=== PATIENT | female | born 1955 | race African-American/Black ===

== ENCOUNTER 2016-09-12 04:58 | Observation (INO) | payer SELFPAY ==
--- NOTE | 2016-09-12 05:16 | ER Document Report ---
ED Dizziness/Weakness - General Chief Complaint: Near Syncope Stated Complaint: WEAKNESS Mode of Arrival: Medic Information source: Patient Notes: Patient states that she was at work and developed palpitations off and on that started around 2:00. Patient states that around 4 AM the symptoms became persistent and she was feeling weak. Patient states that she broke out in a sweat that she was treated her symptoms by sitting in front of a fan took herself off. EMS reports that patient was in SVT with her heart rate in the 170s and patient was hypotensive. They did give patient a 300 mL bolus of IV fluids. Patient currently in a sinus rhythm with normalized blood pressure. Patient states that her only complaint had been feeling like her heart was racing and feeling generally weak. Patient denied any chest pain, abdominal pain, or back pain. Patient denies any symptoms like this in the past. Patient denies any recent travel. TRAVEL OUTSIDE OF THE [place] IN LAST 30 DAYS: No - HPI Patient complains to provider of: Weakness Onset: This morning Onset/Duration: Sudden Quality of pain: No pain Pain Level: Denies Associated symptoms: Nausea, Palpitations, Sweating, Weak all over. denies: Chest pain, Diarrhea, Dizzy, Vertigo, Vomiting Baseline gait: Walks w/o assistance - Related Data Allergies/Adverse Reactions: cefadroxil [From Duricef] Allergy (Verified 09/12/16 05:10) Penicillins Allergy (Verified 09/12/16 05:10) sulfamethoxazole [From Septra] Allergy (Verified 09/12/16 05:10) trimethoprim [From Septra] Allergy (Verified 09/12/16 05:10) Home Medications: Current Home Medications No Home Medications 09/12/16 [History] Past Medical History - General Information source: Patient - Social History Smoking Status: Current Every Day Smoker Chew tobacco use (# tins/day): No Frequency of alcohol use: None Drug Abuse: None Occupation: retail Family History: None - Past Medical History Cardiac Medical History: Reports: Hx Hypertension Pulmonary Medical History: Reports: Hx COPD Neurological Medical History: Reports: Hx Migraine Past Surgical History: Reports: Hx Hysterectomy, Hx Oral Surgery, Hx Orthopedic Surgery, Hx Tubal Ligation - Immunizations Immunizations up to date: Yes Hx Diphtheria, Pertussis, Tetanus Vaccination: No Review of Systems - Review of Systems Constitutional: No symptoms reported. denies: Fever, Recent illness EENT: No symptoms reported Cardiovascular: Palpitations, Heart racing. denies: Chest pain, Dizziness Respiratory: No symptoms reported. denies: Cough, Short of breath Gastrointestinal: Nausea. denies: Abdominal pain, Vomiting Genitourinary: No symptoms reported Female Genitourinary: No symptoms reported Musculoskeletal: No symptoms reported. denies: Back pain, Neck pain Skin: No symptoms reported Hematologic/Lymphatic: No symptoms reported Neurological/Psychological: No symptoms reported Physical Exam - Vital signs Vitals: Resp Pulse Ox 15 99 09/12/16 05:04 09/12/16 05:04 - General General appearance: Appears well, Alert In distress: None - HEENT Head: Normocephalic, Atraumatic Eyes: Normal Conjunctiva: Normal Nasal: Normal Mouth/Lips: Normal Mucous membranes: Normal Pharynx: Normal Neck: Normal, Supple. No: Lymphadenopathy - Respiratory Respiratory status: No respiratory distress Chest status: Nontender Breath sounds: Normal. No: Rales, Rhonchi, Stridor, Wheezing Chest palpation: Normal - Cardiovascular Rhythm: Regular Heart sounds: S1 appreciated, S2 appreciated Murmur: No - Abdominal Inspection: Normal Distension: No distension Bowel sounds: Normal Tenderness: Tender - suprapubic Organomegaly: No organomegaly - Back Back: Normal, Nontender. No: CVA tenderness - Extremities General upper extremity: Normal inspection, Normal ROM. No: Edema General lower extremity: Normal inspection, Normal ROM. No: Edema - Neurological Neuro grossly intact: Yes Cognition: Normal [place] Coma Scale Eye Opening: Spontaneous [place] Coma Scale Verbal: Oriented [place] Coma Scale Motor: Obeys Commands [place] Coma Scale Total: 15 - Psychological Associated symptoms: Normal affect, Normal mood - Skin Skin Temperature: Warm Skin Moisture: Dry Skin Color: Normal Course - Re-evaluation Re-evalutation: 09/12/16 05:15 Dr Shahid to bedside for consultation, agrees with planned diagnostic evaluation 09/12/16 06:33 Patient resting comfortably, denies any complaints or needs at this time. Vital signs stable. Discussed elevated troponin with Dr. Rodriguez who recommends consultation with hospitalist for observation admission 09/12/16 07:20 Called and spoke with Dr. Perkins to accept patient for admission to Dr. Driver services. States that Dr. Driver heard the report and will be down to see the patient. - Vital Signs Vital signs: Temp Pulse Resp BP Pulse Ox 90 20 129/57 H 97 09/12/16 05:52 09/12/16 07:00 09/12/16 06:56 09/12/16 07:00 - Laboratory Result Diagrams: 09/12/16 05:01 09/12/16 05:01 Laboratory results interpreted by me: 09/12/16 09/12/16 09/12/16 05:01 05:01 05:01 WBC 11.9 H Hgb 16.1 H Hct 47.8 H RDW 14.1 H Seg Neutrophils % 78.5 H Absolute Neutrophils 9.3 H Sodium 148.2 H Chloride 109 H Est GFR ( Amer) 59 L Est GFR (Non-Af Amer) 49 L Glucose 126 H TSH 6.05 H Urine Protein 09/12/16 06:11 WBC Hgb Hct RDW Seg Neutrophils % Absolute Neutrophils Sodium Chloride Est GFR ( Amer) Est GFR (Non-Af Amer) Glucose TSH Urine Protein 30 H - EKG Interpretation by Me EKG shows normal: Sinus rhythm Discharge - Discharge Clinical Impression: SVT (supraventricular tachycardia), TSH elevation, Palpitations Admitting Provider: Hospitalist Referrals: LORELEI MONTEZ MD [Primary Care Provider] - Follow up as needed
[2016-09-12 05:36] LABS: HEMATOCRIT 47.8 % (36.0-47.0); HEMOGLOBIN 16.1 g/dL (12.0-15.5); HGB HCT DIFFERENCE 0.5; MEAN CORPUSCULAR HGB CONC 33.8 g/dL (32.0-36.0); MEAN CORPUSCULAR VOLUME 95 fl (80-97); RED BLOOD COUNT 5.04 10^6/uL (3.72-5.28); RED CELL DISTRIBUTION WIDTH 14.1 % (11.5-14.0); SEGMENTED NEUTROPHILS % (AUTO) 78.5 % (42-78); WHITE BLOOD COUNT 11.9 10^3/uL (4.0-10.5)
[2016-09-12 05:37] LABS: ABSOLUTE BASOPHILS # (AUTO) 0.1 10^3/uL (0.0-0.2); ABSOLUTE LYMPHOCYTES (AUTO) 1.7 10^3/uL (0.5-4.7); ABSOLUTE MONOCYTES (AUTO) 0.8 10^3/uL (0.1-1.4); ABSOLUTE NEUT (AUTO) 9.3 10^3/uL (1.7-8.2); BASOPHILS % (AUTO) 0.5 % (0-2); EOSINOPHILS % (AUTO) 0.3 % (0-6); LYMPHOCYTES % (AUTO) 14.2 % (13-45); MONOCYTES % (AUTO) 6.5 % (3-13)
[2016-09-12 05:56] LABS: ALANINE AMINOTRANSFERASE 40 U/L (9-52); ALBUMIN 4.4 g/dL (3.5-5.0); ALKALINE PHOSPHATASE 92 U/L (38-126); ANION GAP 16 (5-19); ASPARTATE AMINO TRANSFERASE 33 U/L (14-36); BILIRUBIN,DIRECT 0.2 mg/dL (0.0-0.4); BILIRUBIN,TOTAL 0.5 mg/dL (0.2-1.3); BLOOD UREA NITROGEN 18 mg/dL (7-20); CALCIUM 9.6 mg/dL (8.4-10.2); CARBON DIOXIDE 23 mmol/L (22-30); CHLORIDE 109 mmol/L (98-107); CREATINE KINASE 68 U/L (30-135); CREATININE RESULT 1.13 mg/dL (0.52-1.25); GLUCOSE 126 mg/dL (75-110); MAGNESIUM 2.2 mg/dL (1.6-2.3); POTASSIUM 3.9 mmol/L (3.6-5.0); SODIUM 148.2 mmol/L (137-145)
[2016-09-12 05:59] LABS: CREATINE KINASE MB 1.54 ng/mL (<4.55)
[2016-09-12 06:19] LABS: TROPONIN I 0.098 ng/mL
[2016-09-12 06:34] LABS: APPEARANCE,URINE SLIGHTLY-CLOUDY; BILIRUBIN,URINE NEGATIVE (NEGATIVE); GLUCOSE, URINE NEGATIVE (NEGATIVE); KETONES,URINE NEGATIVE (NEGATIVE); LEUKOCYTE ESTERASE,URINE NEGATIVE (NEGATIVE); NITRITE,URINE NEGATIVE (NEGATIVE); PROTEIN,URINE 30 mg/dL (NEGATIVE); URINE SPECIFIC GRAVITY 1.006; UROBILINOGEN,URINE NEGATIVE mg/dL (<2.0)
[2016-09-12] MEDS ORDERED: NICOTINE 21 MG/24 HR PATCH.TD24 TD ONE (06:45)
[2016-09-12 07:18] LABS: FREE T3 4.34 pg/mL (2.77-5.27)
[2016-09-12] MEDS ORDERED: ACETAMINOPHEN 325 MG TABLET PO PRN (08:29)
--- NOTE | 2016-09-12 08:54 | PDOC H&P ---
History of Present Illness Admission Date/PCP: PCP none. Patient had been seeing Dr. Richmond. But she has left that practice. Neurologist: Dr. Schrader. Patient complains of: Palpitations History of Present Illness: NIKITA DOBBS is a 61 year old -Wallisian female with a past medical history significant for hypertension, tobacco abuse and migraine headaches on chronic pain medication who presented to the ED with complaints of palpitations. The patient works at [employer] on [address]. She was at work alone when she developed palpitations at around 1-2 in the morning. He said it feels like her heart was beating out of her chest. She called one of her coworkers to come in and cover for her. Her coworker arrived she asked for help summoning the EMS. It was noted that her heart rate was 170 and that her systolic blood pressure was in the 70s. Patient really wanted to go home and rest. She says that she felt sweaty with chills and weakness, nauseous and lightheaded. She denied any chest pain or pato shortness of breath. EMS convinced her to come into the emergency room. She was given 300 mL bolus of fluid. Labs were done and showed an elevated white count at 11 with an elevated sodium at 148. The patient usually drinks copious amounts of water. Over the last day and a half however, she has not had that much. This is never happened to her before. She does have a history of thyroid dysfunction diagnosed back in the 90s. He states that it happened shortly after she gave to her daughter. After several months of workup, nothing was found. The patient is a current smoker and noticed that she has developed a cough recently. While she has not been sick. In the emergency room no medications were given as the patient had returned to sinus rhythm. EKG shows sinus rhythm with first-degree AV block. Her current blood pressure at the bedside has ranged from 126-133 systolic and in the 60s for her diastolic pressure. He has had no further palpitations. Feels well at the moment Past Medical History Cardiac Medical History: Reports: Hypertension Pulmonary Medical History: Reports: Chronic Obstructive Pulmonary Disease (COPD) Neurological Medical History: Reports: Migraine Musculoskeletal History Note: Chronic low back pain Past Surgical History Past Surgical History: Reports: Hysterectomy, Orthopedic Surgery - Right rotator cuff repair. Left meniscus repair., Tubal Ligation Social History Information Source: Patient Smoking Status: Current Every Day Smoker Cigarettes Packs Per Day: 1 Number of Years Smokin - she began smoking at the age of 15 Last Time Smoked: 24 hours ago Frequency of Alcohol Use: None Hx Recreational Drug Use: No Hx Prescription Drug Abuse: No Family History Family History: None, CAD, CVA, Hypertension Parental Family History Reviewed: Yes - her mother is and father with CVA Children Family History Reviewed: Yes Sibling(s) Family History Reviewed.: Yes - Sister had MA at 48 Medication/Allergy Home Medications: No Home Medications 09/12/16 Allergies/Adverse Reactions: cefadroxil [From Duricef] Allergy (Verified 09/12/16 05:10) Penicillins Allergy (Verified 09/12/16 05:10) sulfamethoxazole [From Septra] Allergy (Verified 09/12/16 05:10) trimethoprim [From Septra] Allergy (Verified 09/12/16 05:10) Review of Systems Review of Systems: Review of systems is positive for that already mentioned in the history of present illness in the history of present illness. Addition to this, she admits to occasional abdominal pain in the lower abdomen and arthritic pains. She denies fevers vomiting dysuria constipation diarrhea unexplained weight loss or weight gain. She has had abnormal thyroid function tests in the past. She admits to hot and cold intolerance. Physical Exam Vital Signs: Temp Pulse Resp BP Pulse Ox 98.4 F 90 20 129/57 H 97 09/12/16 07:40 09/12/16 05:52 09/12/16 07:00 09/12/16 06:56 09/12/16 07:00 Intake & Output 09/11/16 09/12/16 09/13/16 06:59 06:59 06:59 Weight 72.575 kg PHYSICAL EXAM: GENERAL: This is a well-developed well-nourished -Wallisian female resting in no acute distress. HEENT: Normocephalic atraumatic trachea is midline sclera are anicteric no lymphadenopathy. HEART: Regular rate and rhythm. No murmurs rubs or gallops. LUNGS: Clear to auscultation bilaterally with equal rise and fall of the chest. ABDOMEN: Soft, slightly tender in the lower quadrant, nondistended with normoactive bowel sounds. EXTREMITIES: No clubbing cyanosis or edema. 2+ peripheral pulses. 5/5 upper and lower extremity strength bilaterally NEURO: Awake, alert, oriented x3. Cranial nerves II through XII specifically intact. PSYCH: Normal affect. Results Laboratory Results: 09/12/16 05:01 09/12/16 05:01 09/12/16 09/12/16 09/12/16 05:01 05:01 05:01 WBC 11.9 H RBC 5.04 Hgb 16.1 H Hct 47.8 H MCV 95 MCH 32.0 MCHC 33.8 RDW 14.1 H Plt Count 219 Seg Neutrophils % 78.5 H Lymphocytes % 14.2 Monocytes % 6.5 Eosinophils % 0.3 Basophils % 0.5 Absolute Neutrophils 9.3 H Absolute Lymphocytes 1.7 Absolute Monocytes 0.8 Absolute Eosinophils 0.0 Absolute Basophils 0.1 Sodium 148.2 H Potassium 3.9 Chloride 109 H Carbon Dioxide 23 Anion Gap 16 BUN 18 Creatinine 1.13 Est GFR ( Amer) 59 L Est GFR (Non-Af Amer) 49 L Glucose 126 H Calcium 9.6 Magnesium 2.2 Total Bilirubin 0.5 AST 33 ALT 40 Alkaline Phosphatase 92 Total Protein 7.0 Albumin 4.4 TSH 6.05 H Free T4 Free T3 pg/mL Urine Color Urine Appearance Urine pH Ur Specific [place] Urine Protein Urine Glucose (UA) Urine Ketones Urine Blood Urine Nitrite Ur Leukocyte Esterase Urine WBC (Auto) Urine RBC (Auto) 09/12/16 09/12/16 05:01 06:11 WBC RBC Hgb Hct MCV MCH MCHC RDW Plt Count Seg Neutrophils % Lymphocytes % Monocytes % Eosinophils % Basophils % Absolute Neutrophils Absolute Lymphocytes Absolute Monocytes Absolute Eosinophils Absolute Basophils Sodium Potassium Chloride Carbon Dioxide Anion Gap BUN Creatinine Est GFR ( Amer) Est GFR (Non-Af Amer) Glucose Calcium Magnesium Total Bilirubin AST ALT Alkaline Phosphatase Total Protein Albumin TSH Free T4 1.20 Free T3 pg/mL 4.34 Urine Color YELLOW Urine Appearance SLIGHTLY-CLOUDY Urine pH 5.0 Ur Specific [place] 1.006 Urine Protein 30 H Urine Glucose (UA) NEGATIVE Urine Ketones NEGATIVE Urine Blood NEGATIVE Urine Nitrite NEGATIVE Ur Leukocyte Esterase NEGATIVE Urine WBC (Auto) 4 Urine RBC (Auto) 1 09/12/16 09/12/16 05:01 05:01 Creatine Kinase 68 CK-MB (CK-2) 1.54 Troponin I 0.098 Impressions: Chest X-Ray 04/22/17 05:14 IMPRESSION: Hyperexpansion. No acute findings. Assessment & Plan - Diagnosis (1) SVT (supraventricular tachycardia) Plan: SVT was noted by EMS. I have yet to see any rhythm strips. We will place the patient in observation status and keep her on telemetry. She does not exhibit any abnormal rhythms she will likely need to be discharged home with 30 day event monitor and appropriate follow-up (2) Migraine Plan: Patient is on Fioricet. We will continue this. (3) Palpitations Plan: Management as per #1. Currently resolved. (4) TSH elevation Plan: TSH is elevated. However, T3 and T4 are within expected limits. Likely she has subacute hypothyroidism. She does have a history of abnormal thyroid function tests in the past. He will need a follow-up with an outpatient physician for retesting in the next 3 months. (5) Tobacco abuse Plan: Smoking cessation is advised. The patient has been given a nicotine patch down in the emergency room (6) Back pain Plan: Patient has chronic back pain on chronic narcotic medication. We will continue this while here - Time Time Spent: 50 to 70 Minutes Smoking Cessation Education: 3 to 10 minutes Medications reviewed and adjusted accordingly: Yes Anticipated discharge: Home - Inpatient Certification Medical Necessity: Need Close Monitoring Due to Risk of Patient Decompensation
[2016-09-12] MEDS ORDERED: HYDROCODONE/ACETAMINOPHEN 7.5-325 MG TABLET PO PRN (10:20)
[2016-09-12] MEDS: BUTALB/ACETAMINOPHEN/CAFFEINE 1 TAB EACH PO SCH ×2 (14:00→21:27)
[2016-09-12] MEDS ORDERED: (PENDING PHARMACY ID) (Butalbital/Aspirin/Caffeine [Fiorinal 50-325-40 Mg Capsule] 1 CAP) PO SCH (14:00)
[2016-09-12] MEDS: LISINOPRIL 10 MG TABLET PO SCH (17:44)
[2016-09-12] MEDS ORDERED: PROPRANOLOL HCL 40 MG TABLET PO SCH (22:00)
[2016-09-13] MEDS ORDERED: NICOTINE 7 MG/24 HR PATCH.TD24 TD PRN (00:53)
[2016-09-13] MEDS: BUTALB/ACETAMINOPHEN/CAFFEINE 1 TAB EACH PO SCH ×2 (05:16→13:49)
[2016-09-13 06:03] LABS: HEMATOCRIT 41.8 % (36.0-47.0); HEMOGLOBIN 14.1 g/dL (12.0-15.5); HGB HCT DIFFERENCE 0.5; MEAN CORPUSCULAR HEMOGLOBIN 32.1 pg (27.0-33.4); MEAN CORPUSCULAR HGB CONC 33.6 g/dL (32.0-36.0); MEAN CORPUSCULAR VOLUME 95 fl (80-97); RED BLOOD COUNT 4.38 10^6/uL (3.72-5.28); RED CELL DISTRIBUTION WIDTH 14.4 % (11.5-14.0); WHITE BLOOD COUNT 6.8 10^3/uL (4.0-10.5)
[2016-09-13 06:25] LABS: ANION GAP 12 (5-19); BLOOD UREA NITROGEN 16 mg/dL (7-20); CALCIUM 9.2 mg/dL (8.4-10.2); CARBON DIOXIDE 23 mmol/L (22-30); CHLORIDE 109 mmol/L (98-107); CREATININE RESULT 0.63 mg/dL (0.52-1.25); GLUCOSE 105 mg/dL (75-110); MAGNESIUM 2.2 mg/dL (1.6-2.3); SODIUM 144.1 mmol/L (137-145)
[2016-09-13] MEDS: LISINOPRIL 10 MG TABLET PO SCH (09:59)
[2016-09-13] MEDS ORDERED: HYDROCHLOROTHIAZIDE 12.5 MG CAPSULE PO SCH (10:00)
--- NOTE | 2016-09-13 13:52 | PDOC DISCHARGE SUMMARY ---
General - Admit/Disc Date/PCP Admission Date/Primary Care Provider: 09/12/16 08:29 LORELEI RICHMOND MD Discharge Date: 09/13/16 - Discharge Diagnosis (1) SVT (supraventricular tachycardia) Summary: No further episodes while here in-house. Patient should follow-up with Dr. Washington on Wednesday for placement of 30 day event monitor/style patch and to schedule an outpatient stress test. (2) Migraine Summary: Continue home medicines (3) Palpitations Summary: Resolved. (4) TSH elevation Summary: Free T4 and free T3 were normal. The patient will need to establish with a new primary care physician as she no longer sees Dr. Richmond. Repeat thyroid panel in 3 months. (5) Tobacco abuse Summary: Smoking cessation is advised. Option for NicoDerm patch was given. (6) Back pain Summary: Continue home hydrocodone. Follow-up with Dr. Rebolledo as appropriate. - Additional Information Resuscitation Status: Full Code Discharge Diet: Regular Discharge Activity: Activity As Tolerated Home Medications: Butalbital/Aspirin/Caffeine [Fiorinal 50-325-40 mg Capsule] 1 cap PO Q8 Hydrochlorothiazide 12.5 mg PO DAILY 09/12/16 Hydrocodone/Acetaminophen [Hydrocodon-Acetaminoph 7.5-325] 1 tab PO Q6HP PRN Lisinopril 40 mg PO DAILY 09/12/16 Propranolol HCl [Inderal 40 mg Tablet] 40 mg PO QHS 09/12/16 Nicotine [Nicoderm 7 mg/24 Hr Transdermal Patch] 1 each TD DAILYP PRN #30 patch.[id number] 09/13/16 History of Present Illness History of Present Illness: NIKITA DOBBS is a 61 year old -Polish female with a past medical history significant for hypertension, tobacco abuse and migraine headaches on chronic pain medication who presented to the ED with complaints of palpitations. The patient works at [employer] on [address]. She was at work alone when she developed palpitations at around 1-2 in the morning. He said it feels like her heart was beating out of her chest. She called one of her coworkers to come in and cover for her. Her coworker arrived she asked for help summoning the EMS. It was noted that her heart rate was 170 and that her systolic blood pressure was in the 70s. Patient really wanted to go home and rest. She says that she felt sweaty with chills and weakness, nauseous and lightheaded. She denied any chest pain or pato shortness of breath. EMS convinced her to come into the emergency room. She was given 300 mL bolus of fluid. Labs were done and showed an elevated white count at 11 with an elevated sodium at 148. The patient usually drinks copious amounts of water. Over the last day and a half however, she has not had that much. This is never happened to her before. She does have a history of thyroid dysfunction diagnosed back in the s. He states that it happened shortly after she gave to her daughter. After several months of workup, nothing was found. The patient is a current smoker and noticed that she has developed a cough recently. While she has not been sick. In the emergency room no medications were given as the patient had returned to sinus rhythm. EKG shows sinus rhythm with first-degree AV block. Her current blood pressure at the bedside has ranged from 126-133 systolic and in the 60s for her diastolic pressure. He has had no further palpitations. Feels well at the moment Hospital Course Hospital Course: Patient was admitted to observation status overnight. She had no further events. No further palpitations. She is felt to be stable for discharge. She will need to follow-up with outpatient cardiology for event monitor placement and for stress test. While she was here it was noted that her thyroid panel was abnormal. He had an elevated TSH with normal T3 and T4. She will need repeat thyroid panel in the next 3 months. Physical Exam Vital Signs: Temp Pulse Resp BP Pulse Ox 98.3 F 63 18 140/69 H 94 09/13/16 07:46 09/13/16 07:46 09/13/16 07:46 09/13/16 07:46 09/13/16 07:46 Intake & Output 09/12/16 09/13/16 09/14/16 06:59 06:59 06:59 Intake Total 440 900 Balance 440 900 Weight 76.8 kg PHYSICAL EXAM: GENERAL: This is a well-developed well-nourished -Polish female resting in no acute distress. HEENT: Normocephalic atraumatic trachea is midline sclera are anicteric no lymphadenopathy. HEART: Regular rate and rhythm. No murmurs rubs or gallops. LUNGS: Clear to auscultation bilaterally with equal rise and fall of the chest. ABDOMEN: Nondistended sounds. EXTREMITIES: No clubbing cyanosis or edema. 2+ peripheral pulses. NEURO: Awake, alert, oriented x3. Cranial nerves II through XII specifically intact. PSYCH: Normal affect. Results Laboratory Results: 09/13/16 05:28 09/13/16 05:28 09/13/16 09/13/16 05:28 05:28 WBC 6.8 RBC 4.38 Hgb 14.1 Hct 41.8 MCV 95 MCH 32.1 MCHC 33.6 RDW 14.4 H Plt Count 197 Sodium 144.1 Potassium 4.0 Chloride 109 H Carbon Dioxide 23 Anion Gap 12 BUN 16 Creatinine 0.63 Est GFR ( Amer) > 60 Est GFR (Non-Af Amer) > 60 Glucose 105 Calcium 9.2 Magnesium 2.2 09/12/16 09/13/16 09:07 07:54 Troponin I 0.416 0.131 Impressions: Chest X-Ray 09/12/16 05:14 IMPRESSION: Hyperexpansion. No acute findings. Qualifiers PATEINT BEING DISCHARGED WITH ANY OF THE FOLLOWING DIAGNOSIS?: No Plan Time Spent: Less than 30 Minutes
[2016-09-13 14:22] VITALS: BP 134/63
--- NOTE | 2016-09-13 16:49 | EKG REPORT ---
SEVERITY:- ABNORMAL ECG - SINUS RHYTHM FIRST DEGREE AV BLOCK ABNRM R PROG, CONSIDER ASMI OR LEAD PLACEMENT PROLONGED QT INTERVAL : Confirmed by: Estefany Loya MD 13-Sep-2016 16:48:24
--- NOTE | 2016-09-13 16:49 | EKG REPORT ---
SEVERITY:- NORMAL ECG - SINUS RHYTHM : Confirmed by: Estefany Loya MD 13-Sep-2016 16:48:16
== END 2016-09-13 14:45 | disposition home or self-care (01) ==
LOC: ER 04:58 → EH 08:29 → 5 13:01
PROVIDERS: ADMIT Hospitalist; ATTEND Hospitalist
PROC: HZ31ZZZ Individual Counseling for Substance Abuse Treatment, Behavioral (ICD-10-PCS; principal; 2016-09-13)
DX: I47.1 Supraventricular tachycardia (principal); G43.909 Migraine, unspecified, not intractable, without status migrainosus; R94.6 Abnormal results of thyroid function studies; G89.29 Other chronic pain; M54.9 Dorsalgia, unspecified; F17.210 Nicotine dependence, cigarettes, uncomplicated; R05 Cough; D72.829 Elevated white blood cell count, unspecified; E87.0 Hyperosmolality and hypernatremia; I44.0 Atrioventricular block, first degree; I95.9 Hypotension, unspecified; Z79.891 Long term (current) use of opiate analgesic; Z82.49 Family history of ischemic heart disease and other diseases of the circulatory system; Z98.890 Other specified postprocedural states; Z98.51 Tubal ligation status; Z90.710 Acquired absence of both cervix and uterus
CPT/HCPCS: 93005; 99285; 36415 ×2; 84439; 82553; 82550; 83735 ×2; 84443; 85025; 85027; 80048; 80053; 81001; 84484 ×2; 84481; 93306; 71010; 93010; 99406; G0378 ×3; J3490 ×6

== ENCOUNTER → 2017-04-09 | Outpatient (CLI) | payer OTHER ==
[2017-04-09 10:04] LABS: ALANINE AMINOTRANSFERASE 27 U/L (9-52); ALBUMIN 4.1 g/dL (3.5-5.0); ALKALINE PHOSPHATASE 77 U/L (38-126); ANION GAP 12 (5-19); ASPARTATE AMINO TRANSFERASE 20 U/L (14-36); BILIRUBIN,DIRECT 0.4 mg/dL (0.0-0.4); BILIRUBIN,TOTAL 0.4 mg/dL (0.2-1.3); BLOOD UREA NITROGEN 20 mg/dL (7-20); CALCIUM 9.6 mg/dL (8.4-10.2); CARBON DIOXIDE 24 mmol/L (22-30); CHLORIDE 111 mmol/L (98-107); CHOLESTEROL 167.22 mg/dL (0-200); CREATININE RESULT 0.72 mg/dL (0.52-1.25); Direct HDL 66 mg/dL (>40); GLUCOSE 89 mg/dL (75-110); POTASSIUM 4.6 mmol/L (3.6-5.0); SODIUM 146.9 mmol/L (137-145); TOTAL PROTEIN 6.7 g/dL (6.3-8.2); TRIGLYCERIDES 79 mg/dL (<150)
[2017-04-09 10:15] LABS: DIRECT LDL 76 mg/dL (<100)
== END ==
LOC: CCC 09:02
DX: I10 Essential (primary) hypertension (principal)
CPT/HCPCS: 36415; 80053; 80061; 83036; 84443

== ENCOUNTER 2018-01-17 14:28 | Emergency (ER) | payer SELFPAY ==
[2018-01-17] MEDS ORDERED: ASPIRIN 81 MG TABLET, CHEWABLE PO ONE (14:52)
[2018-01-17] MEDS ORDERED: NORMAL SALINE 1000 ML 1,000 ML IV ONE (14:53)
[2018-01-17 15:38] LABS: ABSOLUTE BASOPHILS # (AUTO) 0.1 10^3/uL (0.0-0.2); ABSOLUTE LYMPHOCYTES (AUTO) 3.6 10^3/uL (0.5-4.7); ABSOLUTE MONOCYTES (AUTO) 0.6 10^3/uL (0.1-1.4); ABSOLUTE NEUT (AUTO) 5.4 10^3/uL (1.7-8.2); BASOPHILS % (AUTO) 0.6 % (0-2); EOSINOPHILS % (AUTO) 0.5 % (0-6); HEMATOCRIT 44.4 % (36.0-47.0); HEMOGLOBIN 15.2 g/dL (12.0-15.5); LYMPHOCYTES % (AUTO) 37.4 % (13-45); MEAN CORPUSCULAR HEMOGLOBIN 32.7 pg (27.0-33.4); MEAN CORPUSCULAR HGB CONC 34.3 g/dL (32.0-36.0); MEAN CORPUSCULAR VOLUME 95 fl (80-97); MONOCYTES % (AUTO) 5.7 % (3-13); PLATELET COUNT 244 10^3/uL (150-450); RED BLOOD COUNT 4.66 10^6/uL (3.72-5.28); RED CELL DISTRIBUTION WIDTH 13.9 % (11.5-14.0); SEGMENTED NEUTROPHILS % (AUTO) 55.8 % (42-78); TOTAL CELLS COUNTED % (AUTO) 100 %; WHITE BLOOD COUNT 9.7 10^3/uL (4.0-10.5)
--- NOTE | 2018-01-17 15:52 | RADIOLOGY REPORT (SQ) ---
EXAM DESCRIPTION: CHEST SINGLE VIEW COMPLETED DATE/TIME: 01/17/2018 3:45 pm REASON FOR STUDY: afib rvr COMPARISON: None. EXAM PARAMETERS: NUMBER OF VIEWS: One view. TECHNIQUE: Single frontal radiographic view of the chest acquired. RADIATION DOSE: NA LIMITATIONS: None. FINDINGS: LUNGS AND PLEURA: No opacities, masses or pneumothorax. No pleural effusion. MEDIASTINUM AND HILAR STRUCTURES: No masses. Contour normal. HEART AND VASCULAR STRUCTURES: Heart normal in size. Normal vasculature. BONES: Scoliosis. HARDWARE: None in the chest. OTHER: No other significant finding. IMPRESSION: NO ACUTE RADIOGRAPHIC FINDING IN THE CHEST. TECHNICAL DOCUMENTATION: JOB ID: [id number] [employer]- All Rights Reserved Reading location - IP/workstation name: [email or web address]
[2018-01-17 15:55] LABS: APPEARANCE,URINE SLIGHTLY-CLOUDY; BILIRUBIN,URINE NEGATIVE (NEGATIVE); COLOR,URINE YELLOW; GLUCOSE, URINE NEGATIVE (NEGATIVE); KETONES,URINE NEGATIVE (NEGATIVE); LEUKOCYTE ESTERASE,URINE NEGATIVE (NEGATIVE); NITRITE,URINE NEGATIVE (NEGATIVE); PROTEIN,URINE NEGATIVE (NEGATIVE); URINE SPECIFIC GRAVITY 1.029
--- NOTE | 2018-01-17 16:10 | ER Document Report ---
ED General - General Chief Complaint: Chest Pain Stated Complaint: CHEST PAINS Time Seen by Provider: 01/17/18 14:52 TRAVEL OUTSIDE OF THE [place] IN LAST 30 DAYS: No - HPI Patient complains to provider of: Chest pain palpitations Notes: Patient is at work today feeling unwell pain chest palpitations with history of palpitations in the past sees Dr. Thakkar for cardiology. 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 Patient denies any recent travel denies any fever chills nausea vomiting diarrhea. Patient otherwise states just feeling unwell. Patient alert and oriented x3 since the asymptomatic upon my evaluation. - Related Data Allergies/Adverse Reactions: cefadroxil [From Duricef] Allergy (Verified 01/17/18 14:29) Penicillins Allergy (Verified 01/17/18 14:29) sulfamethoxazole [From Septra] Allergy (Verified 01/17/18 14:29) trimethoprim [From Septra] Allergy (Verified 01/17/18 14:29) Past Medical History - Social History Smoking Status: Current Every Day Smoker Chew tobacco use (# tins/day): No Frequency of alcohol use: None Drug Abuse: None Family History: None, CAD, CVA, Hypertension Patient has suicidal ideation: No Patient has homicidal ideation: No - Past Medical History Cardiac Medical History: Reports: Hx Hypertension Denies: Hx Congestive Heart Failure, Hx Heart Attack Pulmonary Medical History: Reports: Hx COPD, Hx Pneumonia Denies: Hx Asthma, Hx Bronchitis, Hx Tuberculosis Neurological Medical History: Reports: Hx Migraine. Denies: Hx Seizures Renal/ Medical History: Denies: Hx End Stage Renal Disease, Hx Kidney Stones, Hx Peritoneal Dialysis GI Medical History: Denies: Hx Cirrhosis, Hx Gastroesophageal Reflux Disease, Hx Ulcer Musculoskeletal Medical History: Reports Hx Arthritis, Denies Hx Multiple Sclerosis Psychiatric Medical History: Denies: Hx Bipolar Disorder, Hx Depression, Hx Schizophrenia Past Surgical History: Reports: Hx Hysterectomy, Hx Oral Surgery, Hx Orthopedic Surgery - Right rotator cuff repair. Left meniscus repair., Hx Tubal Ligation - Immunizations Immunizations up to date: Yes Hx Diphtheria, Pertussis, Tetanus Vaccination: No Review of Systems - Review of Systems Constitutional: No symptoms reported EENT: No symptoms reported Cardiovascular: Chest pain, Palpitations Respiratory: No symptoms reported Gastrointestinal: No symptoms reported Genitourinary: No symptoms reported Female Genitourinary: No symptoms reported Musculoskeletal: No symptoms reported Skin: No symptoms reported Hematologic/Lymphatic: No symptoms reported Neurological/Psychological: No symptoms reported -: Yes All other systems reviewed and negative Physical Exam - Vital signs Vitals: Temp Pulse Resp BP Pulse Ox 97.9 F 73 16 88/45 L 100 01/17/18 14:42 01/17/18 14:42 01/17/18 14:42 01/17/18 14:42 01/17/18 14:42 Interpretation: Normal - General General appearance: Appears well, Alert - HEENT Head: Normocephalic, Atraumatic Eyes: Normal Pupils: PERRL - Respiratory Respiratory status: No respiratory distress Chest status: Nontender Breath sounds: Normal Chest palpation: Normal - Cardiovascular Rhythm: Regular Heart sounds: Normal auscultation Murmur: No - Abdominal Inspection: Normal Distension: No distension Bowel sounds: Normal Tenderness: Nontender Organomegaly: No organomegaly - Back Back: Normal, Nontender - Extremities General upper extremity: Normal inspection, Nontender, Normal color, Normal ROM , Normal temperature General lower extremity: Normal inspection, Nontender, Normal color, Normal ROM , Normal temperature, Normal weight bearing. No: Lizbeth's sign - Neurological Neuro grossly intact: Yes Cognition: Normal Orientation: AAOx4 Charles Coma Scale Eye Opening: Spontaneous [place] Coma Scale Verbal: Oriented Charles Coma Scale Motor: Obeys Commands [place] Coma Scale Total: 15 Speech: Normal Motor strength normal: LUE, RUE, LLE, RLE Sensory: Normal - Psychological Associated symptoms: Normal affect, Normal mood - Skin Skin Temperature: Warm Skin Moisture: Dry Skin Color: Normal Course - Re-evaluation Re-evalutation: 01/17/18 23:24 Initial EKG showed SVT. Patient has been admitted in the past for SVT patient states that she had a [address] Thakkar showing no acute pathology the medications were changed. Patient laboratory studies not show any critical pathology at this time. Patient repeat EKG shows normal sinus rhythm. More likely patient has paroxysmal SVT. Recommend patient avoid all stimulants and follow-up with her cans vacuum tester at this time patient's vital signs are stable patient able ambulate around the ER without difficulty patient will be discharged home. - Vital Signs Vital signs: Temp Pulse Resp BP Pulse Ox 97.9 F 107 H 20 126/86 H 97 01/17/18 14:42 01/17/18 15:48 01/17/18 18:01 01/17/18 18:00 01/17/18 18:01 - Laboratory Result Diagrams: 01/17/18 15:16 01/17/18 15:16 Laboratory results interpreted by me: 01/17/18 01/17/18 15:16 15:16 Sodium 148.0 H Chloride 111 H BUN 25 H Est GFR ( Amer) 57 L Est GFR (Non-Af Amer) 47 L Glucose 120 H Magnesium 2.4 H AST 79 H Urine Urobilinogen 2.0 H Discharge - Discharge Clinical Impression: SVT (supraventricular tachycardia) Condition: Good Disposition: HOME, SELF-CARE Instructions: Paroxysmal Supraventricular Tachycardia ([facility]) Additional Instructions: Laboratory studies at this time did not show any critical pathology.. Initial EKG does show signs of SVT repeat EKG is normal cardiac function. Similar to previous episodes. No other signs of cardiac damage no signs of blood clots in the lungs or signs of infection causing this SVT. I highly recommend to follow up with your cans vacuum tester for another event monitor. Please make sure that you are drinking plenty of water to stay well hydrated there is a your lab work does show signs of dehydration. Return to the ER for any concerning issues
[2018-01-17 16:11] LABS: ALANINE AMINOTRANSFERASE 13 U/L (9-52); ALBUMIN 4.1 g/dL (3.5-5.0); ALKALINE PHOSPHATASE 82 U/L (38-126); ANION GAP 9 (5-19); ASPARTATE AMINO TRANSFERASE 79 U/L (14-36); BILIRUBIN,DIRECT 0.3 mg/dL (0.0-0.4); BILIRUBIN,TOTAL 0.3 mg/dL (0.2-1.3); BLOOD UREA NITROGEN 25 mg/dL (7-20); CALCIUM 9.2 mg/dL (8.4-10.2); CARBON DIOXIDE 28 mmol/L (22-30); CHLORIDE 111 mmol/L (98-107); CREATINE KINASE 79 U/L (30-135); GLUCOSE 120 mg/dL (75-110); POTASSIUM 3.8 mmol/L (3.6-5.0); TOTAL PROTEIN 7.4 g/dL (6.3-8.2)
[2018-01-17 16:16] LABS: URINE AMPHETAMINES SCREEN NEGATIVE; URINE BARBITURATES SCREEN UNCONFIRMED POSITIVE; URINE BENZODIAZEPINES SCREEN NEGATIVE; URINE COCAINE SCREEN NEGATIVE; URINE MARIJUANA (THC) SCREEN NEGATIVE; URINE METHADONE SCREEN NEGATIVE; URINE PHENCYCLIDINE SCREEN NEGATIVE
[2018-01-17 16:35] LABS: CREATINE KINASE MB 0.9 ng/mL (<4.55); TROPONIN I 0.012 ng/mL
[2018-01-17 16:41] LABS: FREE T4 (FREE THYROXINE) 1.16 ng/dL (0.78-2.19)
[2018-01-17 16:55] LABS: THYROID STIMULATING HORMONE 2.33 uIU/mL (0.47-4.68)
[2018-01-17 18:40] VITALS: BP 126/86
--- NOTE | 2018-01-17 19:25 | EKG REPORT ---
SEVERITY:- ABNORMAL ECG - SINUS RHYTHM FIRST DEGREE AV BLOCK BORDERLINE T ABNORMALITIES, ANT-LAT LEADS : Confirmed by: Vikram Gongora MD 17-Jan-2018 19:25:02
--- NOTE | 2018-01-17 19:26 | EKG REPORT ---
SEVERITY:- ABNORMAL ECG - ATRIAL FIBRILLATION WITH RVR NONSPECIFIC REPOL ABNORMALITY, LATERAL LEADS BORDERLINE PROLONGED QT INTERVAL OLD ANTEROSEPTAL NH. : Confirmed by: Vikram Gongora MD 17-Jan-2018 19:25:58
== END 2018-01-17 19:08 | disposition home or self-care (01) ==
LOC: ER 14:28
DX: I47.1 Supraventricular tachycardia (principal); R07.9 Chest pain, unspecified; R00.2 Palpitations; F17.200 Nicotine dependence, unspecified, uncomplicated; I10 Essential (primary) hypertension; Z88.0 Allergy status to penicillin; Z88.3 Allergy status to other anti-infective agents; Z90.710 Acquired absence of both cervix and uterus
CPT/HCPCS: 93005; 99285; 96361; 36415; 84439; 82553; 82550; 83735; 84443; 85025; 80053; 81001; 84484; 80307; 85379; 83880; 71045; 93010; J7030

== ENCOUNTER → 2018-01-19 | Outpatient (CLI) | payer SELFPAY ==
[2018-01-19 16:49] LABS: ABSOLUTE EOSINOPHILS # (AUTO) 0.1 10^3/uL (0.0-0.6); ABSOLUTE LYMPHOCYTES (AUTO) 2.5 10^3/uL (0.5-4.7); ABSOLUTE MONOCYTES (AUTO) 0.5 10^3/uL (0.1-1.4); ABSOLUTE NEUT (AUTO) 4.7 10^3/uL (1.7-8.2); BASOPHILS % (AUTO) 0.4 % (0-2); EOSINOPHILS % (AUTO) 0.8 % (0-6); HEMATOCRIT 40.7 % (36.0-47.0); LYMPHOCYTES % (AUTO) 32.3 % (13-45); MEAN CORPUSCULAR HEMOGLOBIN 32.6 pg (27.0-33.4); MEAN CORPUSCULAR HGB CONC 34.4 g/dL (32.0-36.0); MEAN CORPUSCULAR VOLUME 95 fl (80-97); MONOCYTES % (AUTO) 6.1 % (3-13); PLATELET COUNT 217 10^3/uL (150-450); RED BLOOD COUNT 4.29 10^6/uL (3.72-5.28); SEGMENTED NEUTROPHILS % (AUTO) 60.4 % (42-78); TOTAL CELLS COUNTED % (AUTO) 100 %; WHITE BLOOD COUNT 7.8 10^3/uL (4.0-10.5)
[2018-01-19 17:15] LABS: ANION GAP 11 (5-19); BLOOD UREA NITROGEN 12 mg/dL (7-20); CALCIUM 9.4 mg/dL (8.4-10.2); CARBON DIOXIDE 23 mmol/L (22-30); CHLORIDE 109 mmol/L (98-107); GLUCOSE 99 mg/dL (75-110); POTASSIUM 4.3 mmol/L (3.6-5.0)
== END ==
LOC: OD 15:59
PROVIDERS: ATTEND Internal Medicine Cardiovascular Disease
DX: I10 Essential (primary) hypertension (principal); R00.2 Palpitations
CPT/HCPCS: 36415; 80048; 85025

== ENCOUNTER → 2018-07-11 | Outpatient (CLI) | payer MEDICARE, MEDICAID ==
--- NOTE | 2018-07-11 11:51 | RADIOLOGY REPORT (SQ) ---
EXAM DESCRIPTION: VENOUS BILATERAL LOWER COMPLETED DATE/TIME: 07/11/2018 10:34 am REASON FOR STUDY: VARICOSE VEINS I83.93 ASYMPTOMATIC VARICOSE VEINS OF BILATERAL LOWER EXTREM COMPARISON: None. TECHNIQUE: Dynamic and static de oliveira scale and color images acquired of both lower extremity venous sy stems. Selected spectral images acquired with additional compression and augmentation maneuvers. Imag es stored on PACS. LIMITATIONS: None. FINDINGS: RIGHT LEG COMMON FEMORAL AND FEMORAL: Normal phasicity, compression and augmentation. No visualized echogenic m aterial on de oliveira scale. No defects on color images. POPLITEAL: Normal compression and augmentation. No visualized echogenic material on de oliveira scale. No de fects on color images. CALF VESSELS: Normal compression and augmentation. No visualized echogenic material on de oliveira scale. No defects on color image. GSV AND SSV: Normal compression. No visualized echogenic material on de oliveira scale. No defects on color images. ANY DEEP VENOUS INSUFFICIENCY: Not evaluated. ANY EVIDENCE OF POPLITEAL CYST: No. OTHER: No other significant finding. LEFT LEG COMMON FEMORAL AND FEMORAL: Normal phasicity, compression and augmentation. No visualized echogenic m aterial on de oliveira scale. No defects on color images. POPLITEAL: Normal compression and augmentation. No visualized echogenic material on de oliveira scale. No de fects on color images. CALF VESSELS: Normal compression and augmentation. No visualized echogenic material on de oliveira scale. No defects on color images. GSV AND SSV: Normal compression. No visualized echogenic material on de oliveira scale. No defects on color images. ANY DEEP VENOUS INSUFFICIENCY: Not evaluated. ANY EVIDENCE POPLITEAL CYST: No. OTHER: No other significant finding. IMPRESSION: NO EVIDENCE DVT OR SVT IN EITHER LEG. TECHNICAL DOCUMENTATION: JOB ID: [id number] [employer]- All Rights Reserved Reading location - IP/workstation name: [email or web address]
== END ==
LOC: SP 09:45
PROVIDERS: ATTEND Internal Medicine Geriatric Medicine
DX: I83.93 Asymptomatic varicose veins of bilateral lower extremities (principal)
CPT/HCPCS: 93970

== ENCOUNTER 2018-08-20 04:36 | Emergency (ER) | payer MEDICARE, MEDICAID ==
[2018-08-20 04:42] VITALS: BP 148/91
== END 2018-08-20 04:58 | disposition left against medical advice (07) ==
LOC: ER 04:36
DX: Z53.21 Procedure and treatment not carried out due to patient leaving prior to being seen by health care provider (principal)

== ENCOUNTER → 2019-03-01 | Outpatient (CLI) | payer MEDICARE, MEDICAID ==
--- NOTE | 2019-03-01 17:05 | RADIOLOGY REPORT (SQ) ---
EXAM DESCRIPTION: CHEST PA/LATERAL COMPLETED DATE/TIME: 03/01/2019 4:55 pm REASON FOR STUDY: PRE-OP COMPARISON: 01/17/2018 EXAM PARAMETERS: NUMBER OF VIEWS: two views TECHNIQUE: Digital Frontal and Lateral radiographic views of the chest acquired. RADIATION DOSE: NA LIMITATIONS: none FINDINGS: LUNGS AND PLEURA: No opacities, masses or pneumothorax. No pleural effusion. MEDIASTINUM AND HILAR STRUCTURES: No masses or contour abnormalities. HEART AND VASCULAR STRUCTURES: Heart normal size. No evidence for failure. BONES: There is thoracic scoliosis with concavity toward the left. HARDWARE: None in the chest. OTHER: No other significant finding. IMPRESSION: NO SIGNIFICANT RADIOGRAPHIC FINDING IN THE CHEST. TECHNICAL DOCUMENTATION: JOB ID: [id number] [employer]- All Rights Reserved Reading location - IP/workstation name: [email or web address]
[2019-03-01 17:33] LABS: ABSOLUTE EOSINOPHILS # (AUTO) 0.1 10^3/uL (0.0-0.6); ABSOLUTE LYMPHOCYTES (AUTO) 2.7 10^3/uL (0.5-4.7); ABSOLUTE MONOCYTES (AUTO) 0.4 10^3/uL (0.1-1.4); ABSOLUTE NEUT (AUTO) 4.1 10^3/uL (1.7-8.2); BASOPHILS % (AUTO) 0.2 % (0-2); HEMATOCRIT 41.4 % (36.0-47.0); HEMOGLOBIN 13.9 g/dL (12.0-15.5); MEAN CORPUSCULAR HEMOGLOBIN 32.9 pg (27.0-33.4); MEAN CORPUSCULAR HGB CONC 33.6 g/dL (32.0-36.0); MEAN CORPUSCULAR VOLUME 98 fl (80-97); MONOCYTES % (AUTO) 5.3 % (3-13); PLATELET COUNT 219 10^3/uL (150-450); RED BLOOD COUNT 4.22 10^6/uL (3.72-5.28); RED CELL DISTRIBUTION WIDTH 15.2 % (11.5-14.0); SEGMENTED NEUTROPHILS % (AUTO) 56.5 % (42-78); TOTAL CELLS COUNTED % (AUTO) 100 %; WHITE BLOOD COUNT 7.4 10^3/uL (4.0-10.5)
--- NOTE | 2019-03-01 17:38 | EKG REPORT ---
SEVERITY:- ABNORMAL ECG - SINUS RHYTHM NONSPECIFIC T ABNORMALITIES, ANT-LAT LEADS : Confirmed by: Vikram Gongora MD 01-Mar-2019 17:37:15
[2019-03-01 17:51] LABS: APPEARANCE,URINE CLOUDY; BILIRUBIN,URINE SMALL (NEGATIVE); COLOR,URINE AMBER; GLUCOSE, URINE NEGATIVE (NEGATIVE); KETONES,URINE TRACE mg/dL (NEGATIVE); LEUKOCYTE ESTERASE,URINE NEGATIVE (NEGATIVE); NITRITE,URINE NEGATIVE (NEGATIVE); PROTEIN,URINE 30 mg/dL (NEGATIVE); URINE SPECIFIC GRAVITY 1.041
[2019-03-01 17:52] LABS: ANION GAP 9 (5-19); BLOOD UREA NITROGEN 17 mg/dL (7-20); CALCIUM 9.2 mg/dL (8.4-10.2); CARBON DIOXIDE 28 mmol/L (22-30); CHLORIDE 103 mmol/L (98-107); GLUCOSE 76 mg/dL (75-110); POTASSIUM 4.3 mmol/L (3.6-5.0)
== END ==
LOC: OD 16:15
PROVIDERS: ATTEND Orthopaedic Surgery
DX: Z01.810 Encounter for preprocedural cardiovascular examination (principal); Z01.811 Encounter for preprocedural respiratory examination; Z01.812 Encounter for preprocedural laboratory examination; M17.12 Unilateral primary osteoarthritis, left knee; I48.91 Unspecified atrial fibrillation
CPT/HCPCS: 36415; 71046; 80048; 81001; 85025; 93005; 93010

== ENCOUNTER 2019-03-15 07:54 | Day surgery (SDC) | payer MEDICARE, MEDICAID ==
[2019-03-15] MEDS ORDERED: PROPOFOL INJ 200 MG/20 ML VIAL IV ONE ×2 (09:17→11:16)
[2019-03-15] MEDS ORDERED: ONDANSETRON HCL INJ/PF 4 MG/2 ML SDV IV PRN (10:08)
--- NOTE | 2019-03-15 12:17 | Operative Report ---
Operative Report DATE OF SURGERY: 03/15/19 Operative Report: The risks, benefits and alternatives of the procedure including the risk of bleeding, perforation requiring surgery have been explained to the patient in detail and informed consent has been obtained. Patient is placed in the left, lateral decubital position. Timeout was called. Propofol medication is administered. Rectal examination is done which did not reveal any masses, tears or fissures. An Olympus videoscope was introduced into the patient's rectum. The scope was then carefully advanced all the way to the cecum. The cecum was identified by the usual anatomical landmarks including the ileocecal valve as well as the appendiceal office. Photodocumentation is obtained. Scope was then sequentially pulled back via the various segments of the colon including the ascending colon, hepatic flexure, transverse colon, splenic flexure, descending colon and finally into the rectosigmoid portions of the colon. Retroflexion maneuvers performed. PREOPERATIVE DIAGNOSIS: Colorectal cancer screening POSTOPERATIVE DIAGNOSIS: Right colon inflammation status post biopsy. Internal hemorrhoids OPERATION: Colonoscopy with biopsy SURGEON: GABRIELA CARDONA ANESTHESIA: LMAC TISSUE REMOVED OR ALTERED: As noted above. COMPLICATIONS: None. ESTIMATED BLOOD LOSS: None. INTRAOPERATIVE FINDINGS: As noted above. PROCEDURE: Patient tolerated the procedure well. No immediate postprocedure complications are noted. Patient is discharged in good condition. Discharge date 03/15/2019. Discharge diet: Regular. Discharge activity: Regular. 2 to 3-week follow-up to discuss findings. Patient is instructed to call the office or proceed to the emergency room should there be any further questions. Wait on the pathology. Can consider a 10-year surveillance colonoscopy.
[2019-03-15 12:46] VITALS: BP 143/98
== END 2019-03-15 12:25 | disposition home or self-care (01) ==
LOC: OROUT 07:54
PROVIDERS: ATTEND Internal Medicine Gastroenterology
DX: Z12.11 Encounter for screening for malignant neoplasm of colon (principal); K52.9 Noninfective gastroenteritis and colitis, unspecified; K64.8 Other hemorrhoids; I25.10 Atherosclerotic heart disease of native coronary artery without angina pectoris; I10 Essential (primary) hypertension
CPT/HCPCS: 45380; 88305 ×2; 00812; J2704; 812

== ENCOUNTER 2019-03-27 07:10 | Inpatient (IN) | payer MEDICARE, MEDICAID ==
[~2019-03-27 07:10] MED LIST: BUPIVACAINE INJ/PF LIPOSOME/PF 266 MG/20 ML SDV INJ PRN; CEFAZOLIN INJ 1 GM VIAL IV PRN; CLINDAMYCIN 600 MG/D5W RTU 600 MG/50 ML RTUPB IV ONE; CLINDAMYCIN 600 MG/D5W RTU 600 MG/50 ML RTUPB IV PRN; DEXAMETHASONE SOD PHOSPHATE INJ 4 MG/1 ML VIAL ONE; FENTANYL CITRATE INJ/PF 100 MCG/2 ML AMPUL ONE; IBUPROFEN 800 MG in NORMAL SALINE 250 ML IV PRN; LACTATED RINGERS 1000 ML IV PRN; LIDOCAINE 0.5% INJ-PF (5 MG/ML) 50 ML SDV SUBCUT PRN; MIDAZOLAM 2 MG/2 ML INJ ONE; ONDANSETRON HCL INJ/PF 4 MG/2 ML SDV ONE; OXYCODONE HCL SR 10 MG TABLET PO ONE; OXYCODONE HCL SR 10 MG TABLET PO PRN; PANTOPRAZOLE SODIUM 20 MG TABLET.DR PO ONE; PANTOPRAZOLE SODIUM 20 MG TABLET.DR PO PRN; PROPOFOL INJ 200 MG/20 ML VIAL IV ONE; TRANEXAMIC ACID INJ/PF 1,000 MG/10 ML SDV ONE; VANCOMYCIN HCL 1,000 MG in DEXTROSE 5%-WATER 250 ML IV PRN
[2019-03-27] MEDS ORDERED: PHENYLEPHRINE HCL INJ/PF 10 MG/1 ML SDV ONE (10:52)
[2019-03-27] MEDS ORDERED: VECURONIUM BROMIDE INJ 10 MG VIAL IV ONE (10:58)
[2019-03-27] MEDS ORDERED: SUCCINYLCHOLINE CHLORIDE INJ 200 MG/10 ML VIAL ONE (10:58)
[2019-03-27] MEDS ORDERED: ONDANSETRON HCL INJ/PF 4 MG/2 ML SDV IV PRN ×2 (11:03→11:31)
[2019-03-27] MEDS ORDERED: MORPHINE SULFATE 10 MG/ML INJ IV PRN (11:03)
[2019-03-27] MEDS ORDERED: DIPHENHYDRAMINE HCL 50 MG/ML VIAL IV PRN ×2 (11:03→11:31)
[2019-03-27] MEDS ORDERED: MEPERIDINE HCL/PF INJ 25 MG/1 ML DISP.SYRIN IV PRN (11:03)
[2019-03-27] MEDS ORDERED: FENTANYL CITRATE INJ/PF 100 MCG/2 ML AMPUL IV PRN ×3 (11:03)
[2019-03-27] MEDS ORDERED: PROMETHAZINE HCL INJ 25 MG/1 ML VIAL IV PRN ×2 (11:03)
[2019-03-27] MEDS ORDERED: MAG HYDROX/AL HYDROX/SIMETH SUSP 30 ML UDCUP PO PRN (11:31)
[2019-03-27] MEDS ORDERED: ZOLPIDEM TARTRATE 5 MG TABLET PO PRN (11:31)
[2019-03-27] MEDS ORDERED: ONDANSETRON 4 MG TAB.RAPDIS PO PRN (11:31)
--- NOTE | 2019-03-27 11:36 | Operative Report ---
Operative Report DATE OF SURGERY: 03/27/19 PREOPERATIVE DIAGNOSIS: Left knee arthritis OPERATION: Left knee arthroplasty SURGEON: KEYUR TOLEDO ANESTHESIA: Spinal TISSUE REMOVED OR ALTERED: Bone to pathology ESTIMATED BLOOD LOSS: 50 PROCEDURE: Implants used: Femur: Ashli triathlon size 5 CR uncemented femur Tibia: 5 uncemented tibia Tibial liner: 13 mm CS insert Patella: 5 mm uncemented patella Procedure with the patient supine on the operating table the left the limb is prepped and draped in a sterile fashion. The limb was elevated for exsanguination and the tourniquet inflated to 280 torr. A standard midline median parapatellar approach the knee is taken. Access is gained to the femoral canal through the intercondylar notch. Intramedullary alignment instrumentation used to resect 10 mm of distal femur in 5 of valgus. Sizing guide indicated a size 5 femur. Appropriate cutting jig is then used to fashion anterior posterior and chamfer cuts. A trial reduction femurs performed and this is judged to be adequate. Attention was next turned to the tibia. Using an extra medullary alignment system 9 millimeters was resected off the lateral tibial plateau. This is sized to a size 5 tibia. A trial reduction was now performed with a 5 femur and a 5 tibia using a 13 millimeters spacer. It is full extension and central patellofemoral tracking. The articular surface the patella was next resected using an oscillating saw. All trial implants were removed. The above implants are impacted into position. The tourniquet was deflated hemostasis obtained the wound is then closed in layers using interrupted Vicryl followed by evita. A sterile compressive dressing was applied and the patient returned to recovery room in satisfactory condition.
--- NOTE | 2019-03-27 13:10 | RADIOLOGY REPORT (SQ) ---
EXAM DESCRIPTION: KNEE LEFT 2 VIEWS COMPLETED DATE/TIME: 03/27/2019 12:39 pm REASON FOR STUDY: Post OP -Long Cassette in PACU M17.12 UNILATERAL PRIMARY OSTEOARTHRITIS, LEFT KNE E COMPARISON: None. NUMBER OF VIEWS: Two views. TECHNIQUE: AP and lateral radiographic images acquired of the left knee. LIMITATIONS: None. FINDINGS: Postoperative images show a total knee arthroplasty in good position. IMPRESSION: Total knee arthroplasty. Refer to operative note for further information. TECHNICAL DOCUMENTATION: JOB ID: [id number] [employer] All Rights Reserved Reading location - IP/workstation name: [email or web address]
--- NOTE | 2019-03-27 13:28 | Operative Report ---
Operative Report DATE OF SURGERY: 03/27/19 PREOPERATIVE DIAGNOSIS: Deep perioperative infection status post left shoulder arthroplasty OPERATION: Irrigation debridement and revision reverse shoulder arthroplasty SURGEON: KEYUR TOLEDO ANESTHESIA: GA TISSUE REMOVED OR ALTERED: Cultures x3 to microbiology. Tissue to pathology. Implants to CSS ESTIMATED BLOOD LOSS: 100 PROCEDURE: With the patient in a beachchair position on the operating table the left upper extremity forequarter prepped and draped in sterile fashion. Utilizing the previous deltopectoral approach to the shoulder incision is made anteriorly. Upon entering through the deltoid layer there is a large amount of what appears to be bloody purulent fluid, potentially 50 cc. This is caught and sent to microbiology. There is no clear communication to the underlying shoulder joint but I suspect that there must be at some level. The superficial wound is irrigated with pulse lavage using 3 L of normal suntanned of Betadine. The capsular layer was then transected and the underlying shoulder joint is expected inspected. The polyethylene is removed followed by the glenosphere. The wound is again irrigated with pulse lavage using 3 L normal saline containing Betadine. The shoulder joint is meticulously debrided using a rondure. The wound is irrigated with 3 L of normal saline using pulse lavage. A subsequent Lee 38 mm standard glenosphere is replaced onto the baseplate. A 38 mm +6 polyethylene is placed back into the humeral component. The joint is reduced. Her graph the capsule was repaired using interrupted PDS suture followed by subcutaneous tissue and then skin. A sterile compressive dressing was applied and the patient's return to the PACU in satisfactory condition.
[2019-03-27] MEDS ORDERED: TRANEXAMIC ACID INJ/PF 1,000 MG/10 ML SDV IV PRN (13:30)
[2019-03-27] MEDS: RINGERS SOLUTION,LACTATED 1,000 ML IV PRN ×2 (13:45→23:38)
[2019-03-27] MEDS ORDERED: NICOTINE 21 MG/24 HR PATCH.TD24 TD PRN (13:46)
[2019-03-27] MEDS: OXYCODONE HCL IR 5 MG TABLET PO PRN ×2 (14:01→20:45)
[2019-03-27] MEDS: IBUPROFEN 800 MG in NORMAL SALINE 250 ML IV SCH ×2 (14:05→22:31)
[2019-03-27] MEDS: SENNOSIDES/DOCUSATE 8.6-50 MG 1 EACH TABLET PO SCH (18:04)
[2019-03-27] MEDS ORDERED: (PENDING PHARMACY ID) (Butalbital/Aspirin/Caffeine [Fiorinal 50-325-40 Mg Capsule] 1 CAP) PO PRN (18:32)
[2019-03-27] MEDS: BUTALB/ACETAMINOPHEN/CAFFEINE 1 TAB EACH PO PRN (19:03)
[2019-03-27] MEDS: ACETAMINOPHEN 325 MG TABLET PO PRN (20:44)
[2019-03-27] MEDS ORDERED: PROPRANOLOL HCL 40 MG TABLET PO SCH (22:00)
[2019-03-27] MEDS: IPRATROPIUM/ALBUTEROL 120 PUFF/4 GM MDI IH SCH (22:32)
[2019-03-27] MEDS: OXYCODONE HCL SR 10 MG TABLET PO SCH (22:33)
[2019-03-27] MEDS ORDERED: PROPRANOLOL HCL 40 MG TABLET ONE (22:34)
[2019-03-27] MEDS ORDERED: VANCOMYCIN HCL 1,000 MG in DEXTROSE 5%-WATER 250 ML IV ONE (23:31)
[2019-03-28] MEDS: ACETAMINOPHEN 325 MG TABLET PO PRN (04:03)
[2019-03-28] MEDS: OXYCODONE HCL IR 5 MG TABLET PO PRN ×2 (04:04→10:13)
[2019-03-28] MEDS: IBUPROFEN 800 MG in NORMAL SALINE 250 ML IV SCH ×2 (05:34→13:22)
[2019-03-28 05:38] LABS: HEMATOCRIT 35.6 % (36.0-47.0); HEMOGLOBIN 12.2 g/dL (12.0-15.5); MEAN CORPUSCULAR HEMOGLOBIN 33.3 pg (27.0-33.4); MEAN CORPUSCULAR HGB CONC 34.2 g/dL (32.0-36.0); MEAN CORPUSCULAR VOLUME 98 fl (80-97); PLATELET COUNT 178 10^3/uL (150-450); RED BLOOD COUNT 3.65 10^6/uL (3.72-5.28); RED CELL DISTRIBUTION WIDTH 13.8 % (11.5-14.0); WHITE BLOOD COUNT 7.7 10^3/uL (4.0-10.5)
[2019-03-28] MEDS ORDERED: PANTOPRAZOLE SODIUM 40 MG TABLET.DR PO SCH (06:00)
[2019-03-28 06:30] LABS: ANION GAP 7 (5-19); BLOOD UREA NITROGEN 17 mg/dL (7-20); CALCIUM 8.8 mg/dL (8.4-10.2); CARBON DIOXIDE 24 mmol/L (22-30); CHLORIDE 108 mmol/L (98-107); GLUCOSE 117 mg/dL (75-110)
--- NOTE | 2019-03-28 07:15 | PDOC DISCHARGE SUMMARY ---
Impression - Admit/DC Date/PCP Admission Date/Primary Care Provider: 03/27/19 08:13 CASS LEVY Discharge Date: 03/28/19 - Discharge Diagnosis (1) Arthritis of knee, left Is this a current diagnosis for this admission?: Yes - Additional Information Resuscitation Status: Full Code Referrals: KEYUR TOLEDO MD [ACTIVE STAFF] - 04/04/19 2:30 pm Home Medications: Butalbital/Aspirin/Caffeine [Fiorinal 50-325-40 mg Capsule] 1 cap PO Q4HP PRN 09/12/16 Hydrocodone/Acetaminophen [Hydrocodone-Acetamin 7.5-325] 1 tab PO Q6HP PRN 09/12/16 Propranolol HCl [Inderal 40 mg Tablet] 40 mg PO QHS 09/12/16 Budesonide/Formoterol Fumarate [Symbicort HFA 160-4.5 mcg Inhaler 6 gm] 2 puff IN BID 03/22/19 Ipratropium/Albuterol Sulfate [Combivent Respimat 4 gm Mdi] 1 puff IN QID 03/22/19 Rivaroxaban [Xarelto] 20 mg PO DAILY 03/22/19 Telmisartan/Hydrochlorothiazid [Telmisartan-Hctz 40-12.5 mg Tb] 1 tab PO DAILY 03/22/19 Fluticasone Propionate [Flonase Nasal [employer] 50 Mcg/[employer] 16 gm] 1 spray NASL DAILY 03/27/19 History of Present Illiness History of Present Illness: NIKITA DOBBS is a 64 year old female 64-year-old female with progressive left knee pain and functional disability second Leticia arthritis. Patient admitted for elective left knee arthroplasty. Hospital Course Hospital Course: Patient is admitted through the operating where she undergoes unconjugated left knee arthroplasty. She is returned to floor in satisfactory condition. She walks at least 150 feet on the day of surgery with physical therapy. Compression dressing is taken down on postop morning 1. Underlying OpSite dressings clean dry and intact. There is some surrounding ecchymosis but otherwise the lower extremities without any significant swelling. Distal neurovascular examination is intact. Physical Exam Vital Signs: Temp Pulse Resp BP Pulse Ox 36.8 C 88 18 141/82 H 99 03/27/19 18:13 03/27/19 18:13 03/27/19 18:13 03/27/19 18:13 03/27/19 18:13 Intake & Output 03/27/19 03/28/19 03/29/19 06:59 06:59 06:59 Intake Total 2660 Output Total 50 Balance 2610 Weight 68.04 kg General appearance: PRESENT: no acute distress, mild distress Respiratory exam: PRESENT: unlabored Cardiovascular exam: PRESENT: RRR Pulses: PRESENT: +1 pedal pulses bilateral Vascular exam: PRESENT: normal capillary refill GI/Abdominal exam: PRESENT: soft Rectal exam: PRESENT: deferred Musculoskeletal exam: PRESENT: other - Left knee dressing is clean dry and intact Neurological exam: PRESENT: alert, awake, oriented to person, oriented to place, oriented to time, oriented to situation. ABSENT: motor sensory deficit Psychiatric exam: PRESENT: appropriate affect, normal mood. ABSENT: homicidal i deation, suicidal ideation Skin exam: PRESENT: dry, intact, warm. ABSENT: cyanosis, rash Results Laboratory Results: WBC 7.7 10^3/uL (4.0-10.5) 03/28/19 05:09 RBC 3.65 10^6/uL (3.72-5.28) L 03/28/19 05:09 Hgb 12.2 g/dL (12.0-15.5) 03/28/19 05:09 Hct 35.6 % (36.0-47.0) L 03/28/19 05:09 MCV 98 fl (80-97) H 03/28/19 05:09 MCH 33.3 pg (27.0-33.4) 03/28/19 05:09 MCHC 34.2 g/dL (32.0-36.0) 03/28/19 05:09 RDW 13.8 % (11.5-14.0) 03/28/19 05:09 Plt Count 178 10^3/uL (150-450) 03/28/19 05:09 Sodium 138.5 mmol/L (137-145) 03/28/19 05:09 Potassium 4.0 mmol/L (3.6-5.0) 03/28/19 05:09 Chloride 108 mmol/L (98-107) H 03/28/19 05:09 Carbon Dioxide 24 mmol/L (22-30) 03/28/19 05:09 Anion Gap 7 (5-19) 03/28/19 05:09 BUN 17 mg/dL (7-20) 03/28/19 05:09 Creatinine 0.57 mg/dL (0.52-1.25) 03/28/19 05:09 Est GFR ( Amer) > 60 (>60) 03/28/19 05:09 Est GFR (MDRD) Non-Af > 60 (>60) 03/28/19 05:09 Glucose 117 mg/dL (75-110) H 03/28/19 05:09 Calcium 8.8 mg/dL (8.4-10.2) 03/28/19 05:09 Impressions: Knee X-Ray 03/27/19 11:33 IMPRESSION: Total knee arthroplasty. Refer to operative note for further information. Plan Plan of Treatment: Patient be discharged home with home health services and DME. Follow-up with Dr. Ada De La Cruz [place] for surgery in 2 weeks for staple removal. Stroke Is this a Stroke Patient?: No Stroke Pt being discharged on Anti-thrombolytic therapy?: Yes Acute Heart Failure - Is this a Heart Failure Patient?: No
[2019-03-28] MEDS: BUTALB/ACETAMINOPHEN/CAFFEINE 1 TAB EACH PO PRN (08:02)
[2019-03-28] MEDS: OXYCODONE HCL SR 10 MG TABLET PO SCH (08:59)
[2019-03-28] MEDS ORDERED: HYDROCHLOROTHIAZIDE 12.5 MG TABLET PO SCH ×3 (09:00→10:00)
[2019-03-28] MEDS ORDERED: PRENATAL VITAMIN W DHA CAPSULE PO SCH ×2 (09:00→10:00)
[2019-03-28] MEDS ORDERED: LOSARTAN POTASSIUM 50 MG TABLET PO SCH ×3 (09:00→10:00)
[2019-03-28] MEDS: SENNOSIDES/DOCUSATE 8.6-50 MG 1 EACH TABLET PO SCH (09:00)
[2019-03-28] MEDS: IPRATROPIUM/ALBUTEROL 120 PUFF/4 GM MDI IH SCH ×2 (09:02→13:25)
[2019-03-28] MEDS ORDERED: FLUTICASONE/VILANTEROL 200-25 MCG/DOSE IH SCH (10:00)
[2019-03-28] MEDS ORDERED: (PENDING PHARMACY ID) (Fluticasone Propionate [Flovent Diskus] 1 SPRAY) NAREB SCH (10:00)
[2019-03-28] MEDS ORDERED: (PENDING PHARMACY ID) (Telmisartan/Hydrochlorothiazid [Telmisartan-Hctz 40-12.5 Mg Tb] 1 T PO SCH (10:00)
[2019-03-28 13:41] VITALS: BP 157/82
[2019-03-28] MEDS ORDERED: RIVAROXABAN 10 MG TABLET PO SCH (17:00)
== END 2019-03-28 14:33 | disposition home health service (06) | DRG 470 ==
LOC: INOR 08:13 → 4S 12:56
PROVIDERS: ADMIT Orthopaedic Surgery; ATTEND Orthopaedic Surgery
PROC: 0SRD0JA Replacement of Left Knee Joint with Synthetic Substitute, Uncemented, Open Approach (ICD-10-PCS; principal; 2019-03-27 10:00)
DX: M17.12 Unilateral primary osteoarthritis, left knee (principal); I10 Essential (primary) hypertension; I48.91 Unspecified atrial fibrillation; J44.9 Chronic obstructive pulmonary disease, unspecified; M41.9 Scoliosis, unspecified; Z79.82 Long term (current) use of aspirin; Z88.3 Allergy status to other anti-infective agents; Z88.0 Allergy status to penicillin
CPT/HCPCS: 01402; 36415; 80048; 84132; 85027; 88311; 94799; C1713; C1776; J0330; J1100; J1741; J2250; J2370; J2405; J2704; J3010; J3370; J3490; J7050; J7060; J7120; S0119

== ENCOUNTER → 2019-04-06 | Outpatient (CLI) | payer MEDICARE, MEDICAID ==
--- NOTE | 2019-04-06 18:09 | RADIOLOGY REPORT (SQ) ---
EXAM DESCRIPTION: VENOUS UNILATERAL LOWER COMPLETED DATE/TIME: 04/06/2019 5:52 pm REASON FOR STUDY: LLE SWELLING R22.42 LOCALIZED SWELLING, MASS AND LUMP, LEFT LOWER LIMB COMPARISON: None. TECHNIQUE: Dynamic and static de oliveira scale and color images acquired of the left leg venous system. Se lected spectral images acquired with additional compression and augmentation maneuvers. The contralat eral common femoral vein and saphenofemoral junction were also imaged. Images stored on PACS. LIMITATIONS: None. FINDINGS: COMMON FEMORAL: Normal phasicity, compression and augmentation. No visualized echogenic ma terial on de oliveira scale. No defects on color images. FEMORAL: Normal compression and augmentation. No visualized echogenic material on de oliveira scale. No defe cts on color images. POPLITEAL: Normal compression, augmentation. No visualized echogenic material on de oliveira scale. No defec ts on color images. CALF VESSELS: Normal compression, augmentation. No visualized echogenic material on de oliveira scale. No de fects on color images. GSV and SSV: Normal compression, augmentation. No visualized echogenic material on de oliveira scale. No def ects on color images. ANY DEEP VENOUS INSUFFICIENCY: Not evaluated. ANY EVIDENCE OF POPLITEAL CYST: No. OTHER: Soft tissue edema and fluid below the knee. CONTRALATERAL COMMON FEMORAL VEIN: Normal phasicity, compression and augmentation. No visualized echogenic material on de oliveira scale. No de fects on color images. IMPRESSION: 1. NO EVIDENCE OF DVT OR SVT IN THE LEFT LEG. TECHNICAL DOCUMENTATION: JOB ID: [id number] [employer]- All Rights Reserved Reading location - IP/workstation name: [email or web address]
== END ==
LOC: SP 16:27
PROVIDERS: ATTEND Internal Medicine Geriatric Medicine
DX: R22.42 Localized swelling, mass and lump, left lower limb (principal)
CPT/HCPCS: 93971

== ENCOUNTER → 2019-07-01 | Outpatient (CLI) | payer MEDICARE, MEDICAID ==
--- NOTE | 2019-07-02 13:40 | RADIOLOGY REPORT (SQ) ---
EXAM DESCRIPTION: CT CHEST WITHOUT COMPLETED DATE/TIME: 07/01/2019 9:10 am REASON FOR STUDY: COPD J44.9 CHRONIC OBSTRUCTIVE PULMONARY DISEASE, UNSPECIFIED COMPARISON: None. TECHNIQUE: CT scan performed of the chest without intravenous contrast. Images reviewed with lung, soft tissue and bone windows. Reconstructed coronal and sagittal MPR images reviewed. All images st ored on PACS. All CT scanners at this facility use dose modulation, iterative reconstruction, and/or weight based d osing when appropriate to reduce radiation dose to as low as reasonably achievable (ALARA). [facility]: Dose Right [facility]: CareDose [facility]: Dose Right [facility]: Teradose 4D [facility]: [employer] RADIATION DOSE: CT Rad equipment meets quality standard of care and radiation dose reduction techniq ues were employed. CTDIvol: 3.4 mGy. DLP: 135 mGy-cm. mGy. LIMITATIONS: No technical limitations. FINDINGS: LUNGS AND PLEURA: Moderate centrilobular emphysema. Mild scarring in the lung apices and lung bases. No effusions. HILAR AND MEDIASTINAL STRUCTURES: No identified masses or abnormal nodes. No obvious aneurysm. HEART AND VASCULAR STRUCTURES: No aneurysm. No pericardial effusion. UPPER ABDOMEN: No significant findings. Limited exam. THYROID AND OTHER SOFT TISSUES: No masses. No adenopathy. BONES: No significant finding. HARDWARE: None in the chest. OTHER: No other significant findings. IMPRESSION: Emphysema. No acute findings. TECHNICAL DOCUMENTATION: JOB ID: [id number] Quality ID # [id number]: Final reports with documentation of one or more dose reduction techniques (e.g., Au tomated exposure control, adjustment of the mA and/or kV according to patient size, use of iterative reconstruction technique) 2010 [employer]- All Rights Reserved Reading location - IP/workstation name: [email or web address]
== END ==
LOC: RAD 08:44
PROVIDERS: ATTEND Registered Nurse
DX: J43.2 Centrilobular emphysema (principal)
CPT/HCPCS: 71250

== ENCOUNTER → 2020-04-15 | Outpatient (CLI) | payer MEDICARE, MEDICAID ==
--- NOTE | 2020-04-15 09:50 | WOMENS IMAGING REPORT ---
EXAM DESCRIPTION: 3D SCREENING MAMMO BILAT IMAGES COMPLETED DATE/TIME: 04/15/2020 7:48 am REASON FOR STUDY: Z12.31 ENCNTR SCREEN MAMMOGRAM FOR MALIGNANT NEOPLASM OF BREAST Z12.31 ENCNTR SCR EEN MAMMOGRAM FOR MALIGNANT NEOPLASM OF JULIAN COMPARISON: 2019 EXAM PARAMETERS: Views: Standard craniocaudal and mediolateral oblique views of each breast recorded using digital acquisition and breast tomosynthesis. Read with the assistance of CAD. .[facility] - [employer] Tester Version 9.2 LIMITATIONS: None. FINDINGS: No suspicious masses, suspicious calcifications or architectural distortion. No areas of c oncern. IMPRESSION: NEGATIVE MAMMOGRAM. BIRADS 1. BREAST DENSITY: c. The breasts are heterogeneously dense, which may obscure small masses. BIRAD: ASSESSMENT: 1 NEGATIVE RECOMMENDATION: ROUTINE SCREENING COMMENT: The patient has been notified of the results by letter per MQSA requirements. Additional no tification policies are in place for contacting patient with suspicious or incomplete findings. Quality ID #[id number]: [employer] recommends an annual screening mammogram for women aged 40 years or over. This facility utilizes a reminder system to ensure that all patients receive reminder letters, and/or direct phone calls for appointments. This includes reminders for routine scr eening mammograms, diagnostic mammograms, or other Breast Imaging Interventions when appropriate. Th is patient will be placed in the appropriate reminder system. TECHNICAL DOCUMENTATION: FINDING NUMBER: (1) ASSESSMENT: (1) JOB ID: [id number] 2010 [employer]- All Rights Reserved Reading location - IP/workstation name: [email or web address]
== END ==
LOC: WI 07:25
PROVIDERS: ATTEND Internal Medicine Geriatric Medicine
DX: Z12.31 Encounter for screening mammogram for malignant neoplasm of breast (principal)
CPT/HCPCS: 77063; 77067